=== PATIENT | male | born 1960 | race Caucasian/White ===

== ENCOUNTER 2016-09-18 19:00 | Inpatient (IN) | payer BC, OTHER ==
[~2016-09-18] VITALS: Ht 180.3 cm; Wt 93.0 kg
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
[2016-09-19 05:35] LABS: BASOPHIL % 0.1 %; HEMATOCRIT 43.6 % (37.0-53.0); HEMOGLOBIN 15.2 g/dL (12.0-17.0); IMMATURE GRANULOCYTE % 0.4 %; LYMPHOCYTE # 1.1 K/uL (0.8-4.0); LYMPHOCYTE % 10.9 %; MCH 32.7 pg (27.0-34.0); MCHC 34.9 gm/dL (32.0-36.5); MCV 93.8 fl (83.0-98.0); MONOCYTE # 1.2 K/uL (0.0-1.0); MONOCYTE % 11.3 %; MPV 10.2 fl (9.4-12.4); NEUTROPHIL # (ANC) 7.9 K/uL (1.4-9.0); NEUTROPHIL % 77.3 %; NRBC % 0 /100WBC (0-0.00); PLATELET COUNT 225 K/uL (150-450); RBC 4.65 M/uL (4.00-6.00); RDW-CV 12.9 % (11.9-14.6); WBC 10.2 K/uL (4.0-11.0)
[2016-09-19 05:53] LABS: ALBUMIN 3.3 gm/dL (3.5-5.0); ALK PHOS 83 IU/L (33-138); ALT 76 IU/L (12-78); BLOOD UREA NITROGEN 15 mg/dL (6-24); CALCIUM 8.2 mg/dL (8.5-10.5); CHLORIDE 110 mMol/L (96-110); CO2 27 mMol/L (22-32); CREATININE 1.1 mg/dL (0.6-1.3); ESTIMATED GFR (MDRD EQUATION) > 60; SODIUM 141 mMol/L (135-145); TOTAL BILIRUBIN 0.7 mg/dL (0.0-1.5); TOTAL PROTEIN 6.4 g/dL (6.0-8.4)
[2016-09-19 05:57] LABS: ANION GAP 8.3 (10.0-19.0); AST 70 IU/L (10-40); POTASSIUM 4.3 mMol/L (3.7-5.1)
--- NOTE | 2016-09-19 12:37 | NUR ---
Significant Event: AOX3. VSS. On dilaudid FISH HATCHERY SUPERVISOR. Clear liquid diet. SAT's need to stay >92%. Continues with 1 L/O2. Up with 1-2 assist. Can only use left arm to eat. Up with therapy x2. Patient complains of tailbone hurting when up in chair. Follow up:
--- NOTE | 2016-09-19 13:02 | NUR ---
Introduced self and role of care management to pt and his brother. He is from [facility] and daughter was with him but she is at the [facility] and she lives with his ex and his son who is 24 lives with him. His brother is staying here and I did give him options of motels or [facility] if needed. Pt states he walked the [place] but very sore. WIll continue to follow and see what will be needed on dc.
--- NOTE | 2016-09-20 03:51 | NUR ---
VSS. Pt is AOx3. Dilaudid RESEARCH ANIMAL ATTENDANT still on pt wasn't able to tolerate the pain when attempting to wean off with percocet. Pt had 21 attempts,16 deliveries for a total of 1.6mg. Pt is able to take deeper breaths this morning. Pt remains on 1L O2. Pt a regular diet now.
[2016-09-20 05:43] LABS: BASOPHIL % 0.2 %; EOSINOPHIL # 0.1 K/uL (0.0-0.5); EOSINOPHIL % 0.9 %; HEMATOCRIT 41.9 % (37.0-53.0); HEMOGLOBIN 14.5 g/dL (12.0-17.0); IMMATURE GRANULOCYTE % 0.4 %; LYMPHOCYTE # 1.5 K/uL (0.8-4.0); LYMPHOCYTE % 14.4 %; MCH 32.2 pg (27.0-34.0); MCHC 34.6 gm/dL (32.0-36.5); MCV 93.1 fl (83.0-98.0); MONOCYTE # 1.3 K/uL (0.0-1.0); MONOCYTE % 11.9 %; MPV 9.8 fl (9.4-12.4); NEUTROPHIL # (ANC) 7.7 K/uL (1.4-9.0); NEUTROPHIL % 72.2 %; NRBC % 0 /100WBC (0-0.00); PLATELET COUNT 194 K/uL (150-450); RDW-CV 12.5 % (11.9-14.6); WBC 10.6 K/uL (4.0-11.0)
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
--- NOTE | 2016-09-21 04:03 | NUR ---
Pt had much better night tonight. Pt one assist to bathroom. Pain controlled by Percocet, last given at 0355. Therapy requests a percocet be given anywhere from -829. Pt refused prn milk of mag, but said he would take it tomorrow. Flatulence present. Sling on right arm. CSM intact. Pt remains on 1L O2.
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
--- NOTE | 2016-09-21 15:45 | NUR ---
Significant Event: AOx3. VSS. Ambulated in halls x2. sling to R) arm. Percocet given Q 2hrs PRN. Up with SBA. MOM given this am. Patient is having flatulence but no BM yet. May go home today?? Follow up:
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
--- NOTE | 2016-09-22 04:30 | NUR ---
1 Percocet at 0424 for pain 06/08.
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
[2016-09-22] MEDS ORDERED: PERCOCET 5-3251 EACH PO (18:31)
[2016-09-22] MEDS ORDERED: COLACE100 MG PO (18:32)
[2016-09-22] MEDS ORDERED: MOTRIN600 MG PO (18:33)
[2016-09-22] MEDS ORDERED: MILK OF MA400 MG/5 M PO (18:34)
--- NOTE | 2016-09-22 21:48 | NUR ---
Significant Event: Vital signs stable. Sats at 95% on RA. Up to bathroom with SBA and cane. Percocet given last at 2052. IV's DC'd. Discharge instructions, medications, and krames reviewed with patient and brother (whom the patient will be staying with). Both verbalize understanding. Pt taken to front lobby via wheelchair with all belongings and assisted into vehicle. Follow up:
== END 2016-09-22 21:00 | disposition disaster alternative care site (69) | DRG 184 ==
LOC: GACC 19:00 → G3N 21:30
PROVIDERS: ADMIT Surgery
DX: S22.41XA Multiple fractures of ribs, right side, initial encounter for closed fracture (principal); J98.11 Atelectasis; S27.321A Contusion of lung, unilateral, initial encounter; S42.034A Nondisplaced fracture of lateral end of right clavicle, initial encounter for closed fracture; R40.2413 Glasgow coma scale score 13-15, at hospital admission; V28.0XXA Motorcycle driver injured in noncollision transport accident in nontraffic accident, initial encounter; Y92.488 Other paved roadways as the place of occurrence of the external cause
CPT/HCPCS: J1170; J1650; J2405; J3010; J7120